=== PATIENT | male | born 1940 | race Caucasian/White ===

== ENCOUNTER 2019-09-25 14:14 | Observation (INO) | payer OTHER ==
[~2019-09-25] VITALS: Ht 172.7 cm; Wt 83.0 kg
[~2019-09-25 14:14] MED LIST: ASPIR 8181 MG PO; COREG25 MG PO; EFFIENT10 MG PO; LOSARTAN POTAS100 MG PO; LOSARTAN POTASS50 MG PO; NITROGLYCERIN0.4 MG SUBLING; PLAVIX 75 MG TA75 M1 PO; SIMVASTATIN40 MG PO
[2019-09-25 14:24] VITALS: BP 117/66; BP 17/66
[2019-09-25] MEDS ORDERED: TOPROL XL100 MG PO (14:32)
[2019-09-25] MEDS ORDERED: PLAVIX 75 MG TA75 MG PO (14:32)
[2019-09-25] MEDS ORDERED: SIMVASTATIN80 MG PO (14:33)
[2019-09-25] MEDS ORDERED: ASA81BEC PO (14:33)
[2019-09-25] MEDS ORDERED: COZAAR 50 MG TA50 M1 PO (14:33)
--- NOTE | 2019-09-25 15:07 | EKG ---
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1940 Requested By: Viki Guardado Order Number: [id number] MD: Yohan Canas Measurements Intervals [place] Rate: 144 P: [place]: QRS: -30 QRSD: 102 T: 63 QT: 307 QTc: 475 Interpretive Statements Atrial fibrillation with rapid V-rate Left axis deviation Compared to ECG 08/03/2014 10:15:39 Sinus rhythm no longer present Electronically Signed On 09-25-2019 15:07:14 CDT by Yohan Canas [email or web address] <ELECTRONICALLY SIGNED> By: Yohan Canas MD, [facility] 09/25/19 1507 1438 1438 Yohan Canas MD, [facility] /EPI
[2019-09-25 15:17] LABS: CALCIUM 8.5 mg/dL (8.5-10.1); CREATININE 1.9 mg/dL (0.6-1.3); POTASSIUM 5.1 mmol/L (3.5-5.1)
[2019-09-25 15:19] LABS: APTT 26.8 Seconds (25.0-31.3); INR 1.2; PROTIME 12.5 Seconds (9.20-11.50)
[2019-09-25 15:19] LABS: ABSOLUTE MONOCYTES 0.8 thou/uL (0.0-1.2); ABSOLUTE NEUTROPHILS 7.6 thou/uL (1.6-8.1); BASOPHILS 0.5 %; EOSINOPHILS 0.5 %; HEMATOCRIT 43.1 % (42.0-52.0); HEMOGLOBIN 14.5 gm/dL (14.0-18.0); LYMPHOCYTES 10.3 %; MCH 31.4 pg (26.0-34.0); MCHC 33.6 g/dL (28.0-37.0); MCV 93.5 fL (80.0-100.0); MONOCYTES 8.5 %; MPV 10.6 fl. (7.2-11.1); NUCLEATED RBCS 0 /100WBC; PLATELET COUNT* 216 thou/uL (150-400); POLYS 80.2 %; WBC 9.5 thou/uL (4.0-11.0)
[2019-09-25 15:25] LABS: ALBUMIN 3.3 g/dL (3.4-5.0); TOTAL BILIRUBIN 1.2 mg/dL (<0.1-1.0); TOTAL PROTEIN 6.9 g/dL (6.4-8.2)
[2019-09-25 17:42] VITALS: BP 122/97
[2019-09-25 18:06] VITALS: BP 130/58
--- NOTE | 2019-09-25 19:09 | NUR ---
PT ADMITTED TO ROOM 223. VIA COT. RECIEVED REPORT LORETTA CARABALLO. ATTACHED HEART MONITOR TRACING AFIB. HEART RATE IN 120'S. IV INTACT. CARDIZEM DRIP INFUSING AT 5. BP STABLE AT 130/50. PO AMIODARONE GIVEN PER APR. ADMISSION ASSESSMENT AND HISTORY COMPLETED CHARTED. PT ORIENTED TO ROOM AND CALL LIGHT. PT ON 2L NC. PT NPO AT MIDNIGHT FOR POSSIBLE RADHA CARDIOVERSION IN AM. PT DENIES ANY PAIN OR SHORTNESS OF BREATH. CALL LIGHT WITHIN REACH. WILL CONTINUE TO MONITOR.
[2019-09-25 20:00] VITALS: BP 118/90
[2019-09-26] VITALS (13 sets, daily range): BP systolic 91–128; BP diastolic 57–81
--- NOTE | 2019-09-26 07:50 | NUR ---
ASSUMED PT CARE AT APPROX 1930. PT IS AWAKE AND ORIENTED X4. PT IS TRACING AFIB ON THE DRAPERY HANGER. CARDIZEM TITRATED CHARTED TO MAINTAIN RATE WITHIN LIMITS. PT DENIES CHEST PAIN BUT IS SHORT OF AIR WITH ACITIVITY. NO ACUTE CHANGES THROUGHOUT THIS SHIFT. PT IS ADVISED TO HAVE NOTHING PER [place] AFTER MIDNIGHT FOR POSSIBLE CARDIOVERSION. CALL LIGHT WITHIN REACH. HOURLY ROUNDING DONE FOR PT SAFETY.
--- NOTE | 2019-09-26 11:44 | EKG ---
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
--- NOTE | 2019-09-26 12:39 | TEE ---
[place] [address] TRANSESOPHAGEAL ECHOCARDIOGRAM Name: RHONDA FISCHER Room: [address] MEdithREdith#: [id number] Admission: 09/25/19 Attend Phys: Yohan Canas MD Discharge: Date of : 44 Date of Service: 09/26/19 1239 Report #: [id number] THIS REPORT FOR: cc: FAM - No family physician/PCP FAM - No family physician/PCP Yohan Canas MD [facility] ~ APPROVED REPORT Study performed: 09/26/2019 10:07:32 EXAM: Transesophageal Echocardiogram Patient Location: In-Patient Room #: [facility] Status: routine BSA: 1.97 HR: 88 bpm BP: 118/72 mmHg Rhythm: NSR Other Information Study Quality: Good Indications Atrial Fibrillation Echo Enhancing Agent Indication: Rule out Shunt Agent(s) / Amount(s) Used: Agitated Saline 20 cc Comments: 2 bubble studies Procedure After obtaining informed consent, patient underwent transesophageal echo in the [employer]. Type of Sedation : Conscious Sedation Sedation was administered by Felice Dye RN. Sedation start time: 1015 Case end Time: 1034 Sedation was achieved intravenously with: Versed (6) Fentanyl (75) Transesophageal probe was inserted and advanced into esophagus without difficulty by Yohan Canas MD, [facility]. The RADHA was performed without complications. Synchronized Cardioversion attempted: Successful Synchronized Cardioversion acheived with 200 Joules after 1 attempt(s). [place] [address] TRANSESOPHAGEAL ECHOCARDIOGRAM Name: RHONDA FISCHER Ana María Room: [address] Khushboo#: [id number] Admission: 09/25/19 Attend Phys: Yohan Canas MD Discharge: Date of : 44 Date of Service: 09/26/19 1239 Report #: [id number] Rhythm following Synchronized Cardioversion: Normal Sinus Rhythm Throughout the procedure, the blood pressure, pulse oximetry, cardiac rhythm, and rate were monitored. The patient tolerated the procedure without adverse effects. Recovery from conscious sedation was uneventful and vital signs were stable. Left Ventricle The left ventricle is normal size. There is normal left ventricular wall thickness. Left ventricular systolic function is borderline. Right Ventricle The right ventricle is normal size. The right ventricular systolic function is normal. Atria Left atrium is mildly dilated. No thrombus is visualized in the left atrium or appendage. Small PFO is noted. The atrial septum is aneurysmal. The right atrium size is normal. Aortic Valve The aortic valve is normal in structure. No aortic regurgitation is present. There is no aortic valvular stenosis. Mitral Valve The mitral valve is normal in structure. Mild mitral regurgitation. No evidence of mitral valve stenosis. Tricuspid Valve The tricuspid valve is normal in structure. There is no tricuspid valve regurgitation noted. Pulmonic Valve The pulmonary valve is normal in structure. There is no pulmonic valvular regurgitation. Great Vessels The aortic root is normal in size. Atherosclerotic plaque is present in the ascending aorta. Pericardium There is no pericardial effusion. <Conclusion> Left ventricular systolic function is borderline. [address] [address] TRANSESOPHAGEAL ECHOCARDIOGRAM Name: RHONDA FISCHER Ana María Room: [address] Cheryl.#: [id number] Admission: 09/25/19 Attend Phys: Yohan Canas MD Discharge: Date of : 44 Date of Service: 09/26/19 1239 Report #: [id number] Left atrium is mildly dilated. No thrombus is visualized in the left atrium or appendage. Small PFO is noted. The atrial septum is aneurysmal. Mild mitral regurgitation. successful direct current cardioversion from atrial fibrillation to normal sinus rhythm <ELECTRONICALLY SIGNED> By: Yohan Canas MD, [facility]ACC 09/26/19 1239 1239 123 Yohan Canas MD, [facility]ACC /INF
[2019-09-26 13:58] LABS: CALCIUM 8.3 mg/dL (8.5-10.1); CREATININE 1.8 mg/dL (0.6-1.3)
--- NOTE | 2019-09-26 14:53 | EKG ---
[place] [address] ELECTROCARDIOGRAM REPORT Name: RHONDA FISCHER Room: [address] M.R.#: [id number] Admission: 09/25/19 Attend Phys: Yohan Canas MD Discharge: Date of : 44 Date of Service: 09/26/19 1338 Report #: [id number] THIS REPORT FOR: //name// [facility] Test Date: 2019-09-26 Test Time: 13:38:20 Pat Name: RHONDA FISCHER Department: Room: [address] Gender: M [employer]ter [employer]: : 1940 Requested By: Keiko Leung Order Number: [id number] Reading MD: Yohan Canas Measurements Intervals [place] Rate: 63 P: 45 CO: 189 QRS: -40 QRSD: 96 T: 33 QT: 434 QTc: 445 Interpretive Statements Sinus rhythm Left axis deviation Low voltage, extremity leads Minimal ST depression, anterolateral leads early repolarization Compared to ECG 09/26/2019 08:46:47 Atrial fibrillation no longer present Electronically Signed On 09-26-2019 14:53:39 CDT by Yohan Caans [email or web address] <ELECTRONICALLY SIGNED> By: Yohan Canas MD, [facility] 09/26/19 1453 1338 1338 Yohan Canas MD, [facility] /EPI
[2019-09-26] MEDS ORDERED: PACERONE 200 M200 M1 PO (15:24)
[2019-09-26] MEDS ORDERED: ELIQUIS5 MG PO (15:26)
--- NOTE | 2019-09-26 15:35 | NUR ---
Pt is A&O. Resides at home alone. Active and independent. No DME. No hx of HH or SNF. Per Pt, plan RADHA and cardioversion today, pending outcome, possible dc to home later today or tomorrow. Following.
--- NOTE | 2019-09-26 18:31 | NUR ---
ORDER RECEIVED TO DISCHARGE PATIENT HOME TO SELF CARE FOLLOWING SUCCESSFUL CARDIOVERSION TODAY. MED REC, MEDICATION EDUCATION, STROKE EDUCATION, AND NEED FOR FOLLOW UP WITH VELASQUEZ DAWKINS WITH CARDIOLOGY. DC TIME OF 16;15.
== END 2019-09-26 16:15 | disposition home or self-care (01) ==
LOC: M.ERS 14:14 → M.TBA-ER 16:00 → M.2W 16:00
PROVIDERS: Personal Emergency Response Attendant; Registered Nurse; ADMIT Internal Medicine Cardiovascular Disease; ATTEND Internal Medicine Cardiovascular Disease
DX: Z03.818 Encounter for observation for suspected exposure to other biological agents ruled out (principal); I48.20 Chronic atrial fibrillation, unspecified; I25.10 Atherosclerotic heart disease of native coronary artery without angina pectoris; E78.5 Hyperlipidemia, unspecified; I42.9 Cardiomyopathy, unspecified; I12.9 Hypertensive chronic kidney disease with stage 1 through stage 4 chronic kidney disease, or unspecified chronic kidney disease; N18.9 Chronic kidney disease, unspecified; N28.9 Disorder of kidney and ureter, unspecified; Z79.01 Long term (current) use of anticoagulants; Z79.82 Long term (current) use of aspirin; Z79.899 Other long term (current) drug therapy

== ENCOUNTER → 2019-10-10 | Outpatient (CLI) | payer OTHER ==
[~2019-10-10] MED LIST changes: +ASA81BEC PO; +COZAAR 50 MG TA50 M1 PO; +ELIQUIS5 MG PO; +PACERONE 200 M200 M1 PO; +PLAVIX 75 MG TA75 MG PO; +SIMVASTATIN80 MG PO; +TOPROL XL100 MG PO
[2019-10-10 12:15] LABS: CALCIUM 8.5 mg/dL (8.5-10.1); CREATININE 1.5 mg/dL (0.6-1.3); POTASSIUM 4.2 mmol/L (3.5-5.1)
== END ==
LOC: M.LAB 11:42
PROVIDERS: ATTEND Registered Nurse
DX: N18.9 Chronic kidney disease, unspecified (principal)

== ENCOUNTER → 2020-04-06 | Outpatient (CLI) | payer OTHER ==
[2020-04-06 10:47] LABS: ALBUMIN 3.5 g/dL (3.4-5.0); DIRECT BILIRUBIN 0.2 mg/dL (<0.1-0.3); TOTAL BILIRUBIN 0.7 mg/dL (<0.1-1.0); TOTAL PROTEIN 6.8 g/dL (6.4-8.2)
== END ==
LOC: M.LAB 10:08
PROVIDERS: ATTEND Internal Medicine Cardiovascular Disease
DX: J84.9 Interstitial pulmonary disease, unspecified (principal); I48.91 Unspecified atrial fibrillation; I25.10 Atherosclerotic heart disease of native coronary artery without angina pectoris; I50.42 Chronic combined systolic (congestive) and diastolic (congestive) heart failure; M47.814 Spondylosis without myelopathy or radiculopathy, thoracic region; Z79.899 Other long term (current) drug therapy